=== PATIENT | female | born 1975 | race Caucasian/White ===

== ENCOUNTER 2024-11-05 15:46 | Emergency (ER) | payer OTHER, SELFPAY ==
[2024-11-05 15:54] VITALS: BP 145/106
--- NOTE | 2024-11-05 15:56 | ED.GENMED ---
ED Provider Triage
<Lalo Magana PA-C - Last Filed: 11/05/24 20:42>
-
Patient seen by provider in Triage?: Seen in Triage
Attestation: A medical screening examination has been initiated by a qualified medical provider. Based on the assessment performed at this time, it has been determined that an emergent medical condition may exist and the patient has been informed
that further medical evaluation and possible additional diagnostic testing may be needed.
HPI: 49-year-old female presenting to the emergency department for evaluation of dysphagia that has been ongoing since September. Patient reports an approximate 30 pound weight loss. Now even having a hard time swallowing liquids. Patient states
that when she goes to try and eat she will either cough or vomit this right back up. She has a smoking history of about a pack per day. Also previously drank alcohol but states now she cannot even do this. Labs and CT imaging of the chest abdomen
and pelvis ordered.
GENERAL: Alert , in no apparent distress
EYE: No visual abnormalities.
NECK: Trachea midline
ENT: No visible abnormalities.
LUNGS: No acute respiratory distress
NEUROLOGICAL: Alert and oriented
SKIN: Skin intact. No visible changes.
MUSCULOSKELETAL: Moving extremities normally
PSYCH: Normal and appropriate interaction.
This is a medical evaluation conducted in person to initiate diagnostic evaluation and provide initial therapeutics. Please see further documentation by the treating clinician.
History of Present Illness
<Lalo Magana PA-C - Last Filed: 11/05/24 20:42>
General
Chief Complaint: Abdominal Pain
Time Seen by Provider: 11/05/24 17:38
<Edy Greenfield MD - Last Filed: 11/07/24 14:54>
History of Present Illness
History of Present Illness:
Patient is a 49-year-old female with a history of bipolar disorder who presents to the emergency department with abdominal pain, weight loss, nausea. Patient notes symptoms began sometime in August. She reports early satiety, lack of appetite,
30 pound weight loss since. She reports nausea and vomiting and epigastric pain. She notes difficulty swallowing during this time. no new medications. Denies alcohol use. Denies any drug use
<Matthew Lamb DO - Last Filed: 11/05/24 21:33>
General
Source: patient
Phy Exam
<Edy Greenfield MD - Last Filed: 11/07/24 14:54>
Physical Exam
Physical Exam:
GENERAL APPEARANCE: NAD, well developed/ well nourished
EYES lids/conjunctiva normal
EARS/NOSE/THROAT Mucous membranes moist, uvula midline without oral pharyngeal erythema, exudate or swelling
HEAD/NECK normocephalic atraumatic, neck is supple.
RESPIRATORY respiratory effort normal, speaks in full sentences, no accessory muscle use. Lungs clear to auscultation without rhonchi, wheezes, rales
CARDIAC Regular rate and rhythm, no edema.
ABDOMINAL Soft, ND/NT. There is moderate tenderness in the epigastrium
MUSCLES/EXTREMITIES No abnormal range of motion, no swelling.
SKIN Warm, pink and dry. No rashes
NEUROLOGICAL Speech is clear and appropriate. Normal level of consciousness. 5/5 strength in all extremities.
PSYCH Normal mood and affect. Judgement/competence is appropriate
Course
<Lalo Magana PA-C - Last Filed: 11/05/24 20:42>
Orders/Labs/Results
Orders:
Orders
11/05/24 15:58
CT Chest/abd/pel W Iv Cont Urgent
Reason For Exam: dysphagia
11/05/24 16:07
Comprehensive Metabolic Panel Urgent
HCG, Serum Qualitative Screen Urgent
Comment: ADD ON
Lipase Urgent
TSH Urgent
11/05/24 16:08
Complete Blood Count/With Diff Urgent
11/05/24 17:42
Add On- LAB Urgent
Tests Added?: HCG QAUL
11/05/24 17:49
0.9% Sodium Chloride 1000 ml [Nss] 1,000 ml IV BOLUS
Ondansetron Injectable [Zofran] 4 mg IV NOW STA
11/05/24 17:50
Ketorolac [Toradol] 15 mg IV NOW STA
11/05/24 21:32
Acetaminophen [Tylenol] 650 mg PO NOW STA
Abnormal Lab Results
11/05/24 11/05/24
16:07 16:08
WBC 12.3 H 10^3/uL
(4.8-10.8)
Abs Immat Gran (auto) 0.1 H 10^3/uL
(0-0.05)
Absolute Neuts (auto) 7.4 H 10^3/uL
(1.4-6.5)
Absolute Lymphs (auto) 4.3 H 10^3/uL
(1.2-3.4)
Creatinine 0.5 L mg/dL
(0.6-1.0)
Glucose 101 H mg/dl
(70-99)
Lipase 1109 H* U/L
(23-300)
11/05/24 16:08
11/05/24 16:07
Vital Signs
Initial and Last Documented VS:
Initial Vital Signs
Temp Pulse Resp BP Pulse Ox
98.3 F 94 16 145/106 97
11/05/24 15:54 11/05/24 15:54 11/05/24 15:54 11/05/24 15:54 11/05/24 15:54
Last Documented Vital Signs
Temp Pulse Resp BP Pulse Ox
98.3 F 84 18 159/91 100
11/05/24 20:24 11/05/24 20:24 11/05/24 20:24 11/05/24 20:24 11/05/24 20:24
<Edy Greenfield MD - Last Filed: 11/07/24 14:54>
Orders/Labs/Results
Orders:
Orders
11/05/24 15:58
CT Chest/abd/pel W Iv Cont Urgent
Reason For Exam: dysphagia
11/05/24 16:07
Comprehensive Metabolic Panel Urgent
HCG, Serum Qualitative Screen Urgent
Comment: ADD ON
Lipase Urgent
TSH Urgent
11/05/24 16:08
Complete Blood Count/With Diff Urgent
11/05/24 17:42
Add On- LAB Urgent
Tests Added?: HCG QAUL
11/05/24 17:49
0.9% Sodium Chloride 1000 ml [Nss] 1,000 ml IV BOLUS
Ondansetron Injectable [Zofran] 4 mg IV NOW STA
11/05/24 17:50
Ketorolac [Toradol] 15 mg IV NOW STA
11/05/24 21:32
Acetaminophen [Tylenol] 650 mg PO NOW STA
Abnormal Lab Results
11/05/24 11/05/24
16:07 16:08
WBC 12.3 H 10^3/uL
(4.8-10.8)
Abs Immat Gran (auto) 0.1 H 10^3/uL
(0-0.05)
Absolute Neuts (auto) 7.4 H 10^3/uL
(1.4-6.5)
Absolute Lymphs (auto) 4.3 H 10^3/uL
(1.2-3.4)
Creatinine 0.5 L mg/dL
(0.6-1.0)
Glucose 101 H mg/dl
(70-99)
Lipase 1109 H* U/L
(23-300)
11/05/24 16:08
11/05/24 16:07
Vital Signs
Initial and Last Documented VS:
Initial Vital Signs
Temp Pulse Resp BP Pulse Ox
98.3 F 94 16 145/106 97
11/05/24 15:54 11/05/24 15:54 11/05/24 15:54 11/05/24 15:54 11/05/24 15:54
Last Documented Vital Signs
Temp Pulse Resp BP Pulse Ox
98.3 F 84 18 159/91 100
11/05/24 20:24 11/05/24 20:24 11/05/24 20:24 11/05/24 20:24 11/05/24 20:24
<Matthew Lamb, DO - Last Filed: 11/05/24 21:33>
Orders/Labs/Results
Orders:
Orders
11/05/24 15:58
CT Chest/abd/pel W Iv Cont Urgent
Reason For Exam: dysphagia
11/05/24 16:07
Comprehensive Metabolic Panel Urgent
HCG, Serum Qualitative Screen Urgent
Comment: ADD ON
Lipase Urgent
TSH Urgent
11/05/24 16:08
Complete Blood Count/With Diff Urgent
11/05/24 17:42
Add On- LAB Urgent
Tests Added?: HCG QAUL
11/05/24 17:49
0.9% Sodium Chloride 1000 ml [Nss] 1,000 ml IV BOLUS
Ondansetron Injectable [Zofran] 4 mg IV NOW STA
11/05/24 17:50
Ketorolac [Toradol] 15 mg IV NOW STA
11/05/24 21:32
Acetaminophen [Tylenol] 650 mg PO NOW STA
Abnormal Lab Results
11/05/24 11/05/24
16:07 16:08
WBC 12.3 H 10^3/uL
(4.8-10.8)
Abs Immat Gran (auto) 0.1 H 10^3/uL
(0-0.05)
Absolute Neuts (auto) 7.4 H 10^3/uL
(1.4-6.5)
Absolute Lymphs (auto) 4.3 H 10^3/uL
(1.2-3.4)
Creatinine 0.5 L mg/dL
(0.6-1.0)
Glucose 101 H mg/dl
(70-99)
Lipase 1109 H* U/L
(23-300)
11/05/24 16:08
11/05/24 16:07
Vital Signs
Initial and Last Documented VS:
Initial Vital Signs
Temp Pulse Resp BP Pulse Ox
98.3 F 94 16 145/106 97
11/05/24 15:54 11/05/24 15:54 11/05/24 15:54 11/05/24 15:54 11/05/24 15:54
Last Documented Vital Signs
Temp Pulse Resp BP Pulse Ox
98.3 F 84 18 159/91 100
11/05/24 20:24 11/05/24 20:24 11/05/24 20:24 11/05/24 20:24 11/05/24 20:24
<Matthew Lamb, DO - Last Filed: 11/05/24 21:33>
MDM/Problems Addressed
Differential Diagnosis Includes:
Gallstone pancreatitis, gastric ulcer
MDM/Problems Addressed:
49-year-old female with pancreatitis, gallstones seen, but no signs of clear cholecystitis on CT abdomen pelvis.
Chronic conditions affecting care: Psychiatric illness
<Matthew Lamb, DO - Last Filed: 11/05/24 21:33>
*Radiology
Radiology exam reviewed: radiology read reviewed (CT chest abdomen pelvis shows calcified gallstone, normal-appearing pancreas, 2 mm calcification in central circumflex, emphysema changes in upper lungs)
*Pulse Oximetry
Patient hypoxic: no
*Critical Care Note
Total Time (30-74mins, 75-104mins- exclusive of procedures): Not Applicable
Data Reviewed
Further Testing Considered But Not Given:
Ultrasound not indicated, a CT scan was performed
<Matthew Lamb DO - Last Filed: 11/05/24 21:33>
Patient Management
Social determinants of health affecting care: Living situation and Strong social support
Discussion with other providers: Hospitalist
Escalation/DeEscalation of care consider admission/obs:
Admit indicated
<Matthew Lamb DO - Last Filed: 11/05/24 21:33>
Update Note
Update Note:
Discussed necessity for admission, patient declines. Will discharge AGAINST MEDICAL ADVICE. Patient understands risks.
ED Attending Note
<Lalo Magana PA-C - Last Filed: 11/05/24 20:42>
-
Portions of this chart may have been created with voice recognition software.� Occasional wrong word or��sound alike� substitutions may have occurred due to the inherent limitations of voice recognition software.
<Edy Greenfield MD - Last Filed: 11/07/24 14:54>
ED Attending Note
ED Attending Note:
Patient presents with weight loss, abdominal pain, vomiting. She is hemodynamically stable and afebrile. She is well-appearing on exam epigastric tenderness. Lab work significant for lipase of 1109 with normal LFTs. Unclear etiology. Scan her
abdomen and chest
Discharge Plan
Departure
Patient Disposition: Against Medical Advice
Date of Disposition: 11/05/24
Time of Disposition: 21:20
Patient with high blood pressure during this ER visit?: Yes
Condition: Good
Discharge Problem:
Pancreatitis
Instructions: Acute pancreatitis, Gallstones (DC), Clear Liquid Diet
Prescriptions:
New
ondansetron 4 mg tablet,disintegrating
4 mg PO Q8H PRN (Reason: nausea and vomiting) 4 Days Qty: 7 0RF
No Action
Iberogast
1 cap PO DAILYPRN PRN (Reason: nausea)
fluticasone propion-salmeterol [Advair Diskus] 250-50 mcg/dose Blister With Device
1 inh INHALATION BIDPRN PRN (Reason: sob)
cetirizine 10 mg Tablet
10 mg PO DAILY PRN (Reason: allergies)
alprazolam 1 mg Tablet
1 mg PO TIDPRN PRN (Reason: anxiety)
candesartan 4 mg Tablet
4 mg PO DAILY
bismuth subsalicylate [Pepto-Bismol] 262 mg/15 mL Suspension
524 mg PO DAILYPRN PRN (Reason: nausea)
albuterol sulfate 90 mcg/actuation Hfa Aerosol Inhaler
2 puff INHALATION DAILYPRN PRN (Reason: sob)
sumatriptan 20 mg/actuation [place],Non-Aerosol
20 mg INTRANASAL DAILYPRN PRN (Reason: migraine)
fluticasone propionate [Flonase] 50 mcg/actuation [place],Suspension
1 spray INTRANASAL DAILY
Vraylar 3 mg Capsule
3 mg PO DAILY
Referrals:
Brandy Robles MD [Active] - Call in 1-3 days for appt
Leonel Bella MD [Active] - Call in 1-3 days for appt
UNKNOWN - PT DOES,NOT KNOW [Family Provider] -
Interventions
Interventions:
*Risk Screen - Suicide Last Done: 11/05/24 15:54
*General Assessment Last Done: 11/05/24 15:54
*Neglect/Abuse Screening Last Done: 11/05/24 21:52
ED- Fall Risk Assessment Last Done: 11/05/24 18:21
*ED COVID-19 Vaccine History Last Done: 11/05/24 15:54
*Nursing Disposition Last Done: 11/05/24 21:52
ZE-Lrymtj-Dsospolywr Assessment Last Done: 11/05/24 18:21
Discharge Date and Time
Discharge Date/Time: 11/05/24 21:54
Print Language: BRITISH
[2024-11-05 16:23] LABS: Hematocrit 42.5 % (37.0-47.0); Hemoglobin 14.3 g/dL (12.0-16.0); Mean Corp Hgb Conc. 33.6 g/dL (33.0-37.0); Mean Corpuscular Volume 92.2 fL (81.0-99.0); Mean Platelet Volume 9.9 fL (7.4-10.4); Platelet Count 256 10^3/uL (130-400); Red Blood Cell Count 4.61 10^6/uL (4.20-5.40); Red Cell Dist. Width 13.5 % (11.5-14.5); White Blood Cell Count 12.3 10^3/uL (4.8-10.8)
[2024-11-05 17:01] LABS: % Basophils 0.5 % (0-2); % Eosinophils 0.3 % (0-6); % Immature Granulocytes 0.4 % (0-0.5); % Lymphocytes 34.9 % (20.5-51.1); % Monocytes 3.8 % (1.7-9.3); % Neutrophils 60.1 % (42.2-75.2); Absolute Basophils 0.1 10^3/uL (0-0.2); Absolute Immature Granulocytes 0.1 10^3/uL (0-0.05); Absolute Lymphocytes 4.3 10^3/uL (1.2-3.4); Absolute Monocytes 0.5 10^3/uL (0.1-0.6); Absolute Neutrophils 7.4 10^3/uL (1.4-6.5); Nucleated Red Blood Cells % 0 %
[2024-11-05 17:01] LABS: ALT (SGPT) 16 U/L (0-35); AST (SGOT) 25 U/L (14-36); Albumin 4.8 g/dl (3.5-5.0); Alkaline Phosphatase 58 U/L (38-126); Blood Urea Nitrogen 9 mg/dl (7-17); Calcium 9.3 mg/dl (8.4-10.2); Carbon Dioxide 25 mmol/L (22-30); Chloride 100 mmol/L (98-107); Glucose 101 mg/dl (70-99); Lipase 1109 U/L (23-300); Potassium 4.3 mmol/L (3.5-5.1); Sodium 138 mmol/L (135-145); TSH 0.73 uIU/ml (0.47-4.68); Total Bilirubin 0.7 mg/dl (0.2-1.3); Total Protein 7.8 g/dl (6.3-8.2); eGFR > 60.00
[2024-11-05] MEDS: NSS 1000 IV (17:55)
[2024-11-05] MEDS: TORADOL 15 MG IV (17:58)
[2024-11-05] MEDS: ZOFRAN 4 MG IV (17:58)
--- NOTE | 2024-11-05 18:31 | PHANOTE ---
called [facility] to confirm prescription meds
[2024-11-05 18:49] LABS: HCG, Serum Qualitative Screen Negative
[2024-11-05 20:24] VITALS: BP 159/91
[2024-11-05 21:52] VITALS: BMI 21.0
== END 2024-11-05 21:54 | disposition left against medical advice (07) ==
LOC: EMR 15:46
PROVIDERS: Physician Assistant Medical; EMERGENCY PHYSICIAN Emergency Medicine
DX: K85.90 Acute pancreatitis without necrosis or infection, unspecified (principal); R03.0 Elevated blood-pressure reading, without diagnosis of hypertension; F31.9 Bipolar disorder, unspecified; Z87.891 Personal history of nicotine dependence
CPT/HCPCS: 99285; 96374; 96375; 96361; 71260; 74177; 80053; 83690; 84443; 84703; 85025; Q9967

== ENCOUNTER 2024-11-07 09:29 | Emergency (ER) | payer OTHER, SELFPAY ==
[2024-11-07 09:41] VITALS: BP 143/100
--- NOTE | 2024-11-07 09:42 | ED.GENMED ---
ED Provider Triage
<Elliot Coombs PA-C - Last Filed: 11/07/24 09:48>
-
Patient seen by provider in Triage?: Seen in Triage
Attestation: A medical screening examination has been initiated by a qualified medical provider. Based on the assessment performed at this time, it has been determined that an emergent medical condition may exist and the patient has been informed
that further medical evaluation and possible additional diagnostic testing may be needed.
HPI: 49-year-old female returns to the ER due to continued upper abdominal pain. Seen here 2 days ago for acute pancreatitis and signed out AGAINST MEDICAL ADVICE. No fevers or vomiting
GENERAL: Alert , in no apparent distress
EYE: No visual abnormalities.
NECK: Trachea midline
ENT: No visible abnormalities.
LUNGS: No acute respiratory distress
NEUROLOGICAL: Alert and oriented
SKIN: Skin intact. No visible changes.
MUSCULOSKELETAL: Moving extremities normally
PSYCH: Normal and appropriate interaction.
This is a medical evaluation conducted in person to initiate diagnostic evaluation and provide initial therapeutics. Please see further documentation by the treating clinician.
History of Present Illness
<Elliot Coombs PA-C - Last Filed: 11/07/24 09:48>
General
Chief Complaint: Abdominal Symptoms
Time Seen by Provider: 11/07/24 10:49
<Matthew Lamb DO - Last Filed: 11/07/24 14:04>
General
Source: patient
Exam Limitations: none
Nursing documentation reviewed up to this point in time: agreed with
History of Present Illness
History of Present Illness:
49-year-old female presents emergency department due to epigastric pain ongoing for the past 3 to 4 days. She was in the emergency department on Sunday, diet pancreatitis, and a gallstone. She left AGAINST MEDICAL ADVICE. She returns because
she is worried about her gallbladder and she talk to her sister who is a physician, and advised her to return. She is tolerating the pain well, and is eating clear liquids.
Past History
<Matthew Lamb, DO - Last Filed: 11/07/24 14:04>
Past History
ED Past Medical History: Psychiatric (Panic disorder, PTSD)
ED Past Surgical History:
Review of Systems
<Matthew Lamb, DO - Last Filed: 11/07/24 14:04>
Review of Systems
Allergies reviewed?: Yes
All Other Systems: Not applicable
Constitutional: Reports no symptoms
EENT: Reports no symptoms
Respiratory: Reports no symptoms
Cardiac: Reports no symptoms
ABD/GI: Reports abdominal pain and nausea
: Reports no symptoms
Musculoskeletal: Reports no symptoms
Skin: Reports no symptoms
Neurological: Reports no symptoms
Endocrine: Reports no symptoms
Hematologic/Lymphatic: Reports no symptoms
Psychiatric: Reports no symptoms
Phy Exam
<Matthew Lamb, DO - Last Filed: 11/07/24 14:04>
Physical Exam
Physical Exam:
Physical Exam
General: no apparent distress, not acutely ill
Neck: supple. no meningeal signs. normal posterior pharynx
Heart: s1/s2 regular rate and rhythm, no murmur. equal radial
pulses.
HEENT: Pupils equal round reactive to light, EOMI
Lungs: no acute respiratory distress. clear bilaterally
Abdomen: normal bowel sounds. Mild right upper quadrant tenderness, no rebound or guarding. No CVAT
Neuro: alert and oriented. no focal neurological deficits cranial nerves II through XII intact
Skin: no rash
Psychiatric: well kept. interactive and cooperative
Extremities: no edema. no calf tenderness. negative homans. good distal pulses
Course
<YARED Moran-C - Last Filed: 11/07/24 09:48>
Orders/Labs/Results
Orders:
Orders
11/07/24 09:44
US Abdomen Complete/Upper Urgent
Comment:
Reason For Exam: upper abd pain/pancreatitis
11/07/24 09:48
Complete Blood Count/With Diff Urgent
Comprehensive Metabolic Panel Urgent
Lipase Urgent
Abnormal Lab Results
11/07/24
09:48
MCH 31.8 H pg
(27.0-31.0)
BUN 6 L mg/dl
(7-17)
Creatinine 0.5 L mg/dL
(0.6-1.0)
Glucose 116 H mg/dl
(70-99)
11/07/24 09:48
11/07/24 09:48
Vital Signs
Initial and Last Documented VS:
Initial Vital Signs
Temp Pulse Resp BP Pulse Ox
98.3 F 100 19 143/100 97
11/07/24 09:41 11/07/24 09:41 11/07/24 09:41 11/07/24 09:41 11/07/24 09:41
Last Documented Vital Signs
Temp Pulse Resp BP Pulse Ox
98.3 F 100 19 143/100 97
11/07/24 09:41 11/07/24 09:41 11/07/24 09:41 11/07/24 09:41 11/07/24 09:41
<Matthew Lamb, DO - Last Filed: 11/07/24 14:04>
Orders/Labs/Results
Orders:
Orders
11/07/24 09:44
US Abdomen Complete/Upper Urgent
Comment:
Reason For Exam: upper abd pain/pancreatitis
11/07/24 09:48
Complete Blood Count/With Diff Urgent
Comprehensive Metabolic Panel Urgent
Lipase Urgent
Abnormal Lab Results
11/07/24
09:48
MCH 31.8 H pg
(27.0-31.0)
BUN 6 L mg/dl
(7-17)
Creatinine 0.5 L mg/dL
(0.6-1.0)
Glucose 116 H mg/dl
(70-99)
11/07/24 09:48
11/07/24 09:48
Vital Signs
Initial and Last Documented VS:
Initial Vital Signs
Temp Pulse Resp BP Pulse Ox
98.3 F 100 19 143/100 97
11/07/24 09:41 11/07/24 09:41 11/07/24 09:41 11/07/24 09:41 11/07/24 09:41
Last Documented Vital Signs
Temp Pulse Resp BP Pulse Ox
98.3 F 100 19 143/100 97
11/07/24 09:41 11/07/24 09:41 11/07/24 09:41 11/07/24 09:41 11/07/24 09:41
<Matthew Lamb DO - Last Filed: 11/07/24 14:04>
MDM/Problems Addressed
Differential Diagnosis Includes:
Pancreatitis, cholecystitis
MDM/Problems Addressed:
49-year-old female with biliary colic. No signs of cholecystitis or pancreatitis. Stable for discharge. Patient will follow-up with general surgeon when she returns to [place].
<Matthew Lamb DO - Last Filed: 11/07/24 14:04>
*Radiology
Radiology exam reviewed: radiology read reviewed (Ultrasound consistent with cholelithiasis, no signs of cholecystitis)
*Pulse Oximetry
Patient hypoxic: no
*Critical Care Note
Total Time (30-74mins, 75-104mins- exclusive of procedures): Not Applicable
<Matthew Lamb DO - Last Filed: 11/07/24 14:04>
Patient Management
Social determinants of health affecting care: Living situation and Strong social support
Escalation/DeEscalation of care consider admission/obs:
Admission not indicated
ED Attending Note
<Elliot Coombs PA-C - Last Filed: 11/07/24 09:48>
-
Portions of this chart may have been created with voice recognition software.� Occasional wrong word or��sound alike� substitutions may have occurred due to the inherent limitations of voice recognition software.
Discharge Plan
Departure
Patient Disposition: Home (Routine Discharge)
Date of Disposition: 11/07/24
Time of Disposition: 13:55
Patient with high blood pressure during this ER visit?: Yes
Condition: Good
Discharge Problem:
Biliary colic
Instructions: [place] Diet, Gallstones ED, BLOOD PRESSURE
Prescriptions:
No Action
Iberogast
1 cap PO DAILYPRN PRN (Reason: nausea)
fluticasone propion-salmeterol [Advair Diskus] 250-50 mcg/dose Blister With Device
1 inh INHALATION BIDPRN PRN (Reason: sob)
cetirizine 10 mg Tablet
10 mg PO DAILY PRN (Reason: allergies)
alprazolam 1 mg Tablet
1 mg PO TIDPRN PRN (Reason: anxiety)
candesartan 4 mg Tablet
4 mg PO DAILY
bismuth subsalicylate [Pepto-Bismol] 262 mg/15 mL Suspension
524 mg PO DAILYPRN PRN (Reason: nausea)
albuterol sulfate 90 mcg/actuation Hfa Aerosol Inhaler
2 puff INHALATION DAILYPRN PRN (Reason: sob)
sumatriptan 20 mg/actuation [place],Non-Aerosol
20 mg INTRANASAL DAILYPRN PRN (Reason: migraine)
fluticasone propionate [Flonase] 50 mcg/actuation [place],Suspension
1 spray INTRANASAL DAILY
Vraylar 3 mg Capsule
3 mg PO DAILY
ondansetron 4 mg tablet,disintegrating
4 mg PO Q8H PRN (Reason: nausea and vomiting) 4 Days Qty: 7 0RF
Referrals:
UNKNOWN - PT DOES,NOT KNOW [Family Provider] -
Activity Restrictions/Additional Instructions:
When you return to [place], follow-up with a general surgeon for your gallstones.
Interventions
Interventions:
*Risk Screen - Suicide Last Done: 11/07/24 09:41
*General Assessment Last Done: 11/07/24 09:41
*Neglect/Abuse Screening Last Done: 11/07/24 09:41
ED- Fall Risk Assessment Last Done: 11/07/24 11:40
[place]-[facility]wnyp[facility] Assessment Last Done: 11/07/24 11:40
Discharge Date and Time
Print Language: [place]
[2024-11-07 09:57] LABS: % Basophils 0.6 % (0-2); % Eosinophils 0.4 % (0-6); % Immature Granulocytes 0.3 % (0-0.5); % Lymphocytes 33.4 % (20.5-51.1); % Monocytes 5.7 % (1.7-9.3); % Neutrophils 59.6 % (42.2-75.2); Absolute Basophils 0.1 10^3/uL (0-0.2); Absolute Lymphocytes 3.2 10^3/uL (1.2-3.4); Absolute Monocytes 0.6 10^3/uL (0.1-0.6); Absolute Neutrophils 5.8 10^3/uL (1.4-6.5); Hematocrit 39.1 % (37.0-47.0); Hemoglobin 13.5 g/dL (12.0-16.0); Mean Corp Hgb Conc. 34.5 g/dL (33.0-37.0); Mean Corpuscular Hgb 31.8 pg (27.0-31.0); Mean Corpuscular Volume 92.2 fL (81.0-99.0); Mean Platelet Volume 10.1 fL (7.4-10.4); Nucleated Red Blood Cells % 0 %; Platelet Count 219 10^3/uL (130-400); Red Blood Cell Count 4.24 10^6/uL (4.20-5.40); Red Cell Dist. Width 13.2 % (11.5-14.5); White Blood Cell Count 9.7 10^3/uL (4.8-10.8)
[2024-11-07 10:16] LABS: ALT (SGPT) 15 U/L (0-35); AST (SGOT) 22 U/L (14-36); Albumin 4.7 g/dl (3.5-5.0); Alkaline Phosphatase 56 U/L (38-126); Blood Urea Nitrogen 6 mg/dl (7-17); Calcium 8.5 mg/dl (8.4-10.2); Carbon Dioxide 23 mmol/L (22-30); Chloride 102 mmol/L (98-107); Glucose 116 mg/dl (70-99); Lipase 262 U/L (23-300); Potassium 3.6 mmol/L (3.5-5.1); Sodium 136 mmol/L (135-145); Total Bilirubin 0.8 mg/dl (0.2-1.3); Total Protein 7.7 g/dl (6.3-8.2); eGFR > 60.00
[2024-11-07 14:08] VITALS: BP 132/87
== END 2024-11-07 14:08 | disposition home or self-care (01) ==
LOC: EMR 09:29
PROVIDERS: Physician Assistant; EMERGENCY PHYSICIAN Emergency Medicine
DX: K80.70 Calculus of gallbladder and bile duct without cholecystitis without obstruction (principal); Z87.19 Personal history of other diseases of the digestive system
CPT/HCPCS: 99284; 76700; 80053; 83690; 85025